=== PATIENT | female | born 1995 | race Caucasian/White ===

== ENCOUNTER 2016-10-05 16:45 | Emergency (ER) | payer BC ==
[2016-10-05 16:56] VITALS: BP 115/72; PULSE 70; RESP 16; TEMP 98.1
--- NOTE | 2016-10-05 17:22 | ED ---
General Adult HPI - General Chief complaint: Nausea/Vomiting/Diarrhea Stated complaint: Vomiting Time Seen by Provider: 10/05/16 17:13 Source: patient, RN notes reviewed Mode of arrival: ambulatory Limitations: no limitations - History of Present Illness Initial comments: 20-year-old female presents to the emergency department with a chief complaint of one episode of vomiting. Patient states this happened while she was at work today. Patient states she ate dairy about 30 minutes prior to this happening. Patient states that she suffers from IBS as well as poor digestion of dairy. Patient states after she eats. She either has diarrhea or vomits. Patient states the vomiting happened while works at a states she needed a note stating that she was safe to return to work. Patient states that she has no abdominal pain at this time. Patient states she is still having some mild nausea which is typical after she consumes dairy. Patient states that she just needs a work note. Patient states this is much like her normal symptoms she is not concerned about her symptoms she does not want to be worked up for her symptoms. Patient denies any recent fever, chills, shortness of breath, chest pain, back pain, abdominal pain, numbness or tingling, dysuria or hematuria, constipation or diarrhea, headaches or visual changes, or any other current symptoms. - Related Data Home Medications Medication Instructions Recorded Confirmed Acetaminophen Tab [Tylenol Tab] 650 mg PO Q4H PRN 03/05/16 10/05/16 Dextroamphetamine/Amphetamine 25 mg PO QAM 03/05/16 10/05/16 [Adderall Xr] Dm/Acetaminophen/Doxylamine [Vicks 1 cap PO DAILY 03/05/16 10/05/16 Nyquil Liquicaps] Ibuprofen [Motrin] 200 - 400 mg PO Q6HR PRN 03/05/16 10/05/16 Previous Rx's Medication Instructions Recorded Acetaminophen with Codeine 1 tab PO Q4H PRN #20 tab 03/05/16 [Tylenol w/codeine #3] Albuterol Nebulized [Ventolin 2.5 mg INHALATION Q4H PRN #25 nebu 03/05/16 Nebulized] Albuterol Sulfate [Proair Hfa] 1 - 2 puff INHALATION Q4H PRN #1 03/05/16 inhaler Naproxen [Naprosyn] 500 mg PO Q12HR PRN #30 tab 03/05/16 Allergies Allergy/AdvReac Type Severity Reaction Status Date / Time Sulfa (Sulfonamide Allergy Anaphylaxis Verified 10/05/16 16:56 Antibiotics) Review of Systems ROS Statement: Those systems with pertinent positive or pertinent negative responses have been documented in the HPI. ROS Other: All systems not noted in ROS Statement are negative. Past Medical History Past Medical History: GERD/Reflux Additional Past Medical History / Comment(s): CP (was in hosp 11/29 for and has persisted & dr johnson & hudson are aware) that sometimes leads to cramping; excessive & painful diarrhea; muscle cramps; IBS; hpylori, mono History of Any Multi-Drug Resistant Organisms: None Reported Past Surgical History: Cholecystectomy Past Anesthesia/Blood Transfusion Reactions: No Reported Reaction Past Psychological History: Anxiety, Depression Smoking Status: Current every day smoker Past Alcohol Use History: Rare Past Drug Use History: None Reported - Past Family History Mother Additional Family Medical History / Comment(s): ibs Father Family Medical History: Coronary Artery Disease (CAD), Hyperlipidemia, Hypertension, Myocardial Infarction ([place]) Additional Family Medical History / Comment(s): ibs, cath with stents General Exam Limitations: no limitations General appearance: alert, in no apparent distress ENT exam: Present: normal exam, mucous membranes moist Neck exam: Present: normal inspection. Absent: tenderness, meningismus, lymphadenopathy Respiratory exam: Present: normal lung sounds bilaterally. Absent: respiratory distress, wheezes, rales, rhonchi, stridor Cardiovascular Exam: Present: regular rate, normal rhythm, normal heart sounds. Absent: systolic murmur, diastolic murmur, rubs, gallop, clicks GI/Abdominal exam: Present: soft, normal bowel sounds. Absent: distended, tenderness, guarding, rebound, rigid Neurological exam: Present: alert, oriented X3 Psychiatric exam: Present: normal affect, normal mood Skin exam: Present: warm, dry, intact, normal color. Absent: rash Course Vital Signs 10/05/16 16:53 Temperature 98.1 F Pulse Rate 70 Respiratory 16 Rate Blood Pressure 115/72 O2 Sat by Pulse 97 Oximetry Medical Decision Making - Medical Decision Making 20-year-old female presents to the emergency department with a chief complaint of vomiting times one. At this time she was offered additional workup for her vomiting she states this is much like her normal vomiting just like in no state that she was here and that she can return to work. Patient has no complaints at this time. Abdomen is soft and nontender on exam. This and the patient will be discharged home. We did discuss return parameters and follow-up. She is given the plan all questions have been answered. She will be discharged. Disposition Clinical Impression: Nausea Disposition: HOME SELF-CARE Condition: Stable Instructions: Acute Nausea and Vomiting (ED) Additional Instructions: Please follow up with family doctor if symptoms have not improved over the next two days. Please return to the emergency room if your symptoms increase or worsen or for any other concerns. Referrals: Klever Shen MD [Primary Care Provider] - 1-2 days Time of Disposition: 17:22
== END 2016-10-05 17:29 | disposition home or self-care (01) ==
LOC: EC 16:45
DX: R11.2 Nausea with vomiting, unspecified (principal); F17.200 Nicotine dependence, unspecified, uncomplicated; Z79.899 Other long term (current) drug therapy; Z88.2 Allergy status to sulfonamides
CPT/HCPCS: 99283

== ENCOUNTER 2017-02-03 22:37 | Emergency (ER) | payer BC ==
[2017-02-03 22:42] VITALS: BP 119/76; PULSE 64; RESP 20; TEMP 100.3
[2017-02-03] MEDS ORDERED: PROMETHAZ-COD 6.25-10 MG/5 ML 5 ML CUP PO STA (23:03)
--- NOTE | 2017-02-03 23:12 | ED ---
URI HPI - General Chief Complaint: Upper Respiratory Infection Stated Complaint: cough Time Seen by Provider: 02/03/17 22:50 Source: patient Mode of arrival: ambulatory Limitations: no limitations - History of Present Illness Initial Comments: 21-year-old female patient percents to the emergency department today for evaluation of cough and shortness of breath. Patient states that she has had symptoms approximately one week. She states that when symptoms started she had onset of sore throat, nasal congestion, nasal drainage, and cough. She states that the cough has persisted. States that she still is having some nasal congestion. She she does occasionally cough up a small amount of green sputum. She states that she has had hot and cold flashes with this but denies any known fever. She states she does have burning in her chest when she coughs. She denies any racing heart or palpitations. She denies any recent long car rides or travel. Patient denies any recent rash, abdominal pain, nausea, vomiting, diarrhea, constipation, back pain, numbness, tingling, dizziness, weakness, hematuria, dysuria, urinary urgency, urinary frequency, headache, visual changes, or any other complaints. Denies any chance of , states her period ended yesterday. - Related Data Home Medications Medication Instructions Recorded Confirmed Dextroamphetamine/Amphetamine 25 mg PO QAM 03/05/16 02/03/17 [Adderall Xr] Ibuprofen [Motrin] 200 - 400 mg PO Q6HR PRN 03/05/16 02/03/17 Albuterol Nebulized [Ventolin 2.5 mg INHALATION RT-QID PRN 02/03/17 02/03/17 Nebulized] Albuterol Sulfate [Proair Hfa] 1 - 2 puff INHALATION RT-QID PRN 02/03/17 traMADol HCL [Ultram] 50 - 100 mg PO BID PRN 02/03/17 02/03/17 Previous Rx's Medication Instructions Recorded Azithromycin [Zithromax Z-pack] 0 mg PO DIRECTED #6 tab 02/03/17 Promethaz-Cod 6.25-10 mg/5 ml 5 ml PO Q6HR PRN #100 ml 02/03/17 [Phenergan with Codeine] Allergies Allergy/AdvReac Type Severity Reaction Status Date / Time Sulfa (Sulfonamide Allergy Anaphylaxis Verified 02/03/17 22:59 Antibiotics) Review of Systems ROS Statement: Those systems with pertinent positive or pertinent negative responses have been documented in the HPI. ROS Other: All systems not noted in ROS Statement are negative. Past Medical History Past Medical History: GERD/Reflux Additional Past Medical History / Comment(s): CP (was in hosp 11/29 for and has persisted & dr johnson & hudson are aware) that sometimes leads to cramping; excessive & painful diarrhea; muscle cramps; IBS; hpylori, mono History of Any Multi-Drug Resistant Organisms: None Reported Past Surgical History: Cholecystectomy Past Anesthesia/Blood Transfusion Reactions: No Reported Reaction Past Psychological History: Anxiety, Depression Smoking Status: Current every day smoker Past Alcohol Use History: Rare Past Drug Use History: None Reported - Past Family History Mother Additional Family Medical History / Comment(s): ibs Father Family Medical History: Coronary Artery Disease (CAD), Hyperlipidemia, Hypertension, Myocardial Infarction ([place]) Additional Family Medical History / Comment(s): ibs, cath with stents General Exam Limitations: no limitations General appearance: alert, in no apparent distress, other (Physical well- developed, well-nourished adult female patient in no acute distress. Vital signs upon presentation were temperature 100.3F, pulse 64, respirations 20, blood pressure 119/76, pulse ox 99% on room air.) Eye exam: Present: normal appearance, PERRL, EOMI. Absent: scleral icterus, conjunctival injection, periorbital swelling ENT exam: Present: normal exam, normal oropharynx, mucous membranes moist, TM's normal bilaterally Neck exam: Present: normal inspection. Absent: tenderness, meningismus, lymphadenopathy Respiratory exam: Present: normal lung sounds bilaterally. Absent: respiratory distress, wheezes, rales, rhonchi, stridor Cardiovascular Exam: Present: regular rate, normal rhythm, normal heart sounds. Absent: systolic murmur, diastolic murmur, rubs, gallop, clicks GI/Abdominal exam: Present: soft, normal bowel sounds. Absent: distended, tenderness, guarding, rebound, rigid Neurological exam: Present: alert, oriented X3, CN II-XII intact Psychiatric exam: Present: normal affect, normal mood Skin exam: Present: warm, dry, intact, normal color. Absent: rash Course Vital Signs 02/03/17 22:40 Temperature 100.3 F H Pulse Rate 64 Respiratory 20 Rate Blood Pressure 119/76 O2 Sat by Pulse 99 Oximetry Medical Decision Making - Medical Decision Making 21-year-old female patient presented to the emergency department today for evaluation of cough 1 week and nasal congestion. Physical examination was unremarkable. Lungs were clear. Two-view chest x-ray showed no acute cardiopulmonary process. Patient was mildly febrile upon arrival. Did explain to her that her symptoms are consistent with acute bronchitis. She will be given a prescription for cough medication as well as Z-Roland. She is instructed to follow-up with her primary care physician for recheck in 1-2 days. She is instructed to return here immediately for any new, worsening, or concerning symptoms. She verbalizes understanding and agrees with this plan. - Radiology Data Radiology results: report reviewed, image reviewed Two-view x-ray of the chest shows a heart and mediastinum are normal. Lungs are clear. Diaphragm is normal. Bony thorax appears normal. Impression by Dr. Webb shows normal chest with no change. Disposition Clinical Impression: Acute bronchitis, Sinusitis Disposition: HOME SELF-CARE Condition: Good Instructions: Sinusitis (ED), Acute Bronchitis (ED) Additional Instructions: Increase fluids. Take [id number]-[id number] nasal decongestants. Take Tylenol Motrin for fever control. Follow-up with her primary care physician for recheck in 1-2 days. Return here immediately for any new, worsening, or concerning symptoms. Prescriptions: Azithromycin [Zithromax Z-pack] 0 mg PO DIRECTED #6 tab Promethaz-Cod 6.25-10 mg/5 ml [Phenergan with Codeine] 5 ml PO Q6HR PRN #100 ml PRN Reason: Cough Referrals: Klever Shen MD [Primary Care Provider] - 1-2 days Time of Disposition: 23:38
--- NOTE | 2017-02-03 23:26 | XR ---
EXAMINATION TYPE: XR chest 2V DATE OF EXAM: 02/03/2017 COMPARISON: 03/05/2016 HISTORY: Cough TECHNIQUE: Frontal and lateral views of the chest are obtained. FINDINGS: Heart and mediastinum are normal. Lungs are clear. Diaphragm is normal. Bony thorax appear s normal. IMPRESSION: Normal chest. No change.
== END 2017-02-03 23:44 | disposition home or self-care (01) ==
LOC: EC 22:37
DX: J20.9 Acute bronchitis, unspecified (principal); J32.9 Chronic sinusitis, unspecified; F17.200 Nicotine dependence, unspecified, uncomplicated; Z88.2 Allergy status to sulfonamides; Z79.899 Other long term (current) drug therapy
CPT/HCPCS: 71020; 99283

== ENCOUNTER 2017-03-22 14:35 | Emergency (ER) | payer BC ==
[2017-03-22] MEDS ORDERED: ACETAMINOPHEN TAB 500 MG TAB PO STA (15:41)
[2017-03-22] MEDS ORDERED: IBUPROFEN 600 MG STARTER PACK 4 TAB BTL PO STA (15:41)
[2017-03-22] MEDS ORDERED: ONDANSETRON 4 MG/2 ML VIAL IVP STA (15:41)
[2017-03-22] MEDS ORDERED: SODIUM CHLORIDE 0.9% 1,000 ML IV ONE (15:42)
[2017-03-22] MEDS ORDERED: SODIUM CHLORIDE 0.9% 1,000 ML IV SCH (15:45)
--- NOTE | 2017-03-22 15:55 | ED ---
General Adult HPI - General Chief complaint: Nausea/Vomiting/Diarrhea Stated complaint: Recheck for flu symtoms Time Seen by Provider: 03/22/17 15:32 Source: patient, RN notes reviewed, old records reviewed Mode of arrival: ambulatory Limitations: no limitations - History of Present Illness Initial comments: Speaking of the 21-year-old female with a history of influenz exposure presents emergency department continue fever, vomiting episodes and cough. Patient had the symptoms for the past four days. Patient has been treated with Tamiflu but it's not getting any better. She's not in any Motrin Tylenol every four hours. Her cough is Productive. She denies any other abdominal pain.She reports body aches and sore throat. , - Related Data Home Medications Medication Instructions Recorded Confirmed Dextroamphetamine/Amphetamine 25 mg PO QAM 03/05/16 03/22/17 [Adderall Xr] Albuterol Sulfate [Proair Hfa] 1 - 2 puff INHALATION RT-QID PRN 02/03/17 traMADol HCL [Ultram] 50 mg PO BID PRN 02/03/17 03/22/17 Dicyclomine [Bentyl] 20 mg PO DAILY PRN 03/22/17 03/22/17 Previous Rx's Medication Instructions Recorded Amoxicillin 500 mg PO Q12HR #20 cap 03/22/17 Ibuprofen [Motrin] 800 mg PO TID #20 tab 03/22/17 Ondansetron Odt [Zofran Odt] 4 mg PO Q8HR PRN #12 tab 03/22/17 Promethazine/Dextromethorphan 5 ml PO TID #120 ml 03/22/17 [Phenergan DM Syrup] Allergies Allergy/AdvReac Type Severity Reaction Status Date / Time adhesive tape Allergy Rash/Hives Verified 03/22/17 15:58 Sulfa (Sulfonamide Allergy Anaphylaxis Verified 03/22/17 15:58 Antibiotics) Review of Systems ROS Statement: Those systems with pertinent positive or pertinent negative responses have been documented in the HPI. ROS Other: All systems not noted in ROS Statement are negative. Past Medical History Past Medical History: GERD/Reflux Additional Past Medical History / Comment(s): CP (was in hosp 11/29 for and has persisted & dr johnson & hudson are aware) that sometimes leads to cramping; excessive & painful diarrhea; muscle cramps; IBS; hpylori, mono History of Any Multi-Drug Resistant Organisms: None Reported Past Surgical History: Cholecystectomy Past Anesthesia/Blood Transfusion Reactions: No Reported Reaction Past Psychological History: Anxiety, Depression Smoking Status: Current every day smoker Past Alcohol Use History: Rare Past Drug Use History: None Reported - Past Family History Mother Additional Family Medical History / Comment(s): ibs Father Family Medical History: Coronary Artery Disease (CAD), Hyperlipidemia, Hypertension, Myocardial Infarction ([place]) Additional Family Medical History / Comment(s): ibs, cath with stents General Exam - General Exam Comments Initial Comments: This patient is a 21 year old female, discomfort and febrile. No acute distress. Limitations: no limitations General appearance: alert, in no apparent distress Head exam: Present: atraumatic, normocephalic, normal inspection Eye exam: Present: normal appearance, PERRL, EOMI. Absent: scleral icterus, conjunctival injection, periorbital swelling ENT exam: Present: normal exam, mucous membranes moist. Absent: normal oropharynx (erythematous oropharynx. ) Neck exam: Present: normal inspection, full ROM. Absent: tenderness, meningismus, lymphadenopathy Respiratory exam: Present: normal lung sounds bilaterally Cardiovascular Exam: Present: regular rate, normal rhythm, normal heart sounds. Absent: systolic murmur, diastolic murmur, rubs, gallop, clicks GI/Abdominal exam: Present: soft, normal bowel sounds. Absent: distended, tenderness, guarding, rebound, rigid Extremities exam: Present: normal inspection, full ROM, normal capillary refill. Absent: tenderness, pedal edema, joint swelling, calf tenderness Back exam: Present: normal inspection Neurological exam: Present: alert, oriented X3, CN II-XII intact Psychiatric exam: Present: normal affect, normal mood Skin exam: Present: warm Course Vital Signs 03/22/17 03/22/17 03/22/17 15:04 17:09 17:35 Temperature 101.7 F H 100.9 F H 99.8 F H Pulse Rate 108 H 91 80 Respiratory 20 20 18 Rate Blood Pressure 107/60 98/55 101/57 O2 Sat by Pulse 97 96 96 Oximetry Medical Decision Making - Medical Decision Making 21-year-old female with four days of fever, body aches, vomiting episodes and severe cough. She does have a mild that you're if I would've throat. Lungs are clear also Tat[place] but she does have a sick coughing. Patient's chest x-ray was reviewed and normal. Patient given IV fluids and nausea medication. She reports she feels better at this time. Her lab work was always viewed in within normal limits. Your analysis shows no infection. Patient does have a positive rapid strep test. Starting on amoxicillin in the emergency department. But she'll be discharged with cough syrup, anabiotic's, nausea medication, and Motrin and Tylenol. Discussed importance of following up with primary care physician. She agrees to treatment plan and will comply. - Lab Data Result diagrams: 03/22/17 16:40 03/22/17 16:40 Lab Results 03/22/17 03/22/17 03/22/17 Range/Units 16:40 16:40 16:40 WBC 7.7 (3.8-10.6) k/uL RBC 4.71 (3.80-5.40) m/uL Hgb 14.2 (11.4-16.0) gm/dL Hct 42.1 (34.0-46.0) % MCV 89.4 (80.0-100.0) fL MCH 30.1 (25.0-35.0) pg MCHC 33.7 (31.0-37.0) g/dL RDW 13.2 (11.5-15.5) % Plt Count 272 (150-450) k/uL Neutrophils % 85 % Lymphocytes % 9 % Monocytes % 3 % Eosinophils % 1 % Basophils % 0 % Neutrophils # 6.6 (1.3-7.7) k/uL Lymphocytes # 0.7 L (1.0-4.8) k/uL Monocytes # 0.3 (0-1.0) k/uL Eosinophils # 0.1 (0-0.7) k/uL Basophils # 0.0 (0-0.2) k/uL Sodium 140 (137-145) mmol/L Potassium 4.1 (3.5-5.1) mmol/L Chloride 105 (98-107) mmol/L Carbon Dioxide 23 (22-30) mmol/L Anion Gap 12 mmol/L BUN 9 (7-17) mg/dL Creatinine 0.70 (0.52-1.04) mg/dL Est GFR (MDRD) Af Amer >60 (>60 ml/min/1.73 sqM) Est GFR (MDRD) Non-Af >60 (>60 ml/min/1.73 sqM) Glucose 103 H (74-99) mg/dL Calcium 9.4 (8.4-10.2) mg/dL Total Bilirubin 0.4 (0.2-1.3) mg/dL AST 40 H (14-36) U/L ALT 56 H (9-52) U/L Alkaline Phosphatase 92 (38-126) U/L Total Protein 7.6 (6.3-8.2) g/dL Albumin 4.2 (3.5-5.0) g/dL Urine Color Urine Appearance (Clear) Urine pH (5.0-8.0) Ur Specific [place] (1.001-1.035) Urine Protein (Negative) Urine Glucose (UA) (Negative) Urine Ketones (Negative) Urine Blood (Negative) Urine Nitrite (Negative) Urine Bilirubin (Negative) Urine Urobilinogen (<2.0) mg/dL Ur Leukocyte Esterase (Negative) Urine WBC (0-5) /hpf Ur Squamous Epith Cells (0-4) /hpf Urine Bacteria (None) /hpf Urine Mucus (None) /hpf Urine HCG, Qual Not Detected (Not Detectd) Influenza Type A RNA (Not Detectd) Influenza Type B (PCR) (Not Detectd) Group A Strep Rapid (Negative) 03/22/17 03/22/17 03/22/17 Range/Units 16:40 16:40 16:40 WBC (3.8-10.6) k/uL RBC (3.80-5.40) m/uL Hgb (11.4-16.0) gm/dL Hct (34.0-46.0) % MCV (80.0-100.0) fL MCH (25.0-35.0) pg MCHC (31.0-37.0) g/dL RDW (11.5-15.5) % Plt Count (150-450) k/uL Neutrophils % % Lymphocytes % % Monocytes % % Eosinophils % % Basophils % % Neutrophils # (1.3-7.7) k/uL Lymphocytes # (1.0-4.8) k/uL Monocytes # (0-1.0) k/uL Eosinophils # (0-0.7) k/uL Basophils # (0-0.2) k/uL Sodium (137-145) mmol/L Potassium (3.5-5.1) mmol/L Chloride (98-107) mmol/L Carbon Dioxide (22-30) mmol/L Anion Gap mmol/L BUN (7-17) mg/dL Creatinine (0.52-1.04) mg/dL Est GFR (MDRD) Af Amer (>60 ml/min/1.73 sqM) Est GFR (MDRD) Non-Af (>60 ml/min/1.73 sqM) Glucose (74-99) mg/dL Calcium (8.4-10.2) mg/dL Total Bilirubin (0.2-1.3) mg/dL AST (14-36) U/L ALT (9-52) U/L Alkaline Phosphatase (38-126) U/L Total Protein (6.3-8.2) g/dL Albumin (3.5-5.0) g/dL Urine Color Yellow Urine Appearance Cloudy H (Clear) Urine pH 6.0 (5.0-8.0) Ur Specific [place] 1.018 (1.001-1.035) Urine Protein Negative (Negative) Urine Glucose (UA) Negative (Negative) Urine Ketones Negative (Negative) Urine Blood Negative (Negative) Urine Nitrite Negative (Negative) Urine Bilirubin Negative (Negative) Urine Urobilinogen 3.0 (<2.0) mg/dL Ur Leukocyte Esterase Moderate H (Negative) Urine WBC 3 (0-5) /hpf Ur Squamous Epith Cells 14 H (0-4) /hpf Urine Bacteria Rare H (None) /hpf Urine Mucus Rare H (None) /hpf Urine HCG, Qual (Not Detectd) Influenza Type A RNA Not Detected (Not Detectd) Influenza Type B (PCR) Not Detected (Not Detectd) Group A Strep Rapid Positive A (Negative) - Radiology Data Radiology results: report reviewed CXR is reviewed and negative. Disposition Clinical Impression: Strep pharyngitis Disposition: HOME SELF-CARE Condition: Good Instructions: Strep Throat (ED) Additional Instructions: Patient is to alternate Motrin and Tylenol every 4 hours for fever. Take the antibiotic as prescribed. Return to the emergency department if any alarming signs or symptoms occur. Prescriptions: Amoxicillin 500 mg PO Q12HR #20 cap Ibuprofen [Motrin] 800 mg PO TID #20 tab Ondansetron Odt [Zofran Odt] 4 mg PO Q8HR PRN #12 tab PRN Reason: Nausea Promethazine/Dextromethorphan [Phenergan DM Syrup] 5 ml PO TID #120 ml Referrals: Klever Shen MD [Primary Care Provider] - 1-2 days Time of Disposition: 17:25
[2017-03-22 16:53] LABS: Basophils % (A) 0 %; Eosinophils # (A) 0.1 k/uL (0-0.7); Eosinophils % (A) 1 %; HCT 42.1 % (34.0-46.0); HGB 14.2 gm/dL (11.4-16.0); Lymphocytes # (A) 0.7 k/uL (1.0-4.8); Lymphocytes % (A) 9 %; MCH 30.1 pg (25.0-35.0); MCHC 33.7 g/dL (31.0-37.0); MCV 89.4 fL (80.0-100.0); Mean Platelet Volume 7.7; Monocytes # (A) 0.3 k/uL (0-1.0); Monocytes % (A) 3 %; Neutrophils # (A) 6.6 k/uL (1.3-7.7); Neutrophils % (A) 85 %; Platelet Count 272 k/uL (150-450); RBC 4.71 m/uL (3.80-5.40); RDW 13.2 % (11.5-15.5); WBC 7.7 k/uL (3.8-10.6)
[2017-03-22 17:01] LABS: ALT 56 U/L (9-52); AST 40 U/L (14-36); Albumin 4.2 g/dL (3.5-5.0); Alkaline Phosphatase 92 U/L (38-126); Anion Gap 12 mmol/L; Blood Urea Nitrogen 9 mg/dL (7-17); Calcium 9.4 mg/dL (8.4-10.2); Carbon Dioxide 23 mmol/L (22-30); Chloride 105 mmol/L (98-107); Glucose 103 mg/dL (74-99); Potassium 4.1 mmol/L (3.5-5.1); Sodium 140 mmol/L (137-145); Total Bilirubin 0.4 mg/dL (0.2-1.3); Total Protein 7.6 g/dL (6.3-8.2)
[2017-03-22 17:04] LABS: Appearance,Urine Cloudy (Clear); Bacteria,Urine Rare /hpf; Bilirubin,Urine Negative (Negative); Blood,Urine Negative (Negative); Color,Urine Yellow; Glucose,Urine (UA) Negative (Negative); Ketones,Urine Negative (Negative); Leukocyte Esterase,Urine Moderate (Negative); Mucus,Urine Rare /hpf; Nitrite,Urine Negative (Negative); Protein,Urine Negative (Negative); Specific Gravity,Urine 1.018 (1.001-1.035); Squamous Epithelial Cell,Urine 14 /hpf (0-4); WBC,Urine 3 /hpf (0-5)
--- NOTE | 2017-03-22 17:22 | XR ---
EXAMINATION TYPE: XR chest 2V DATE OF EXAM: 03/22/2017 COMPARISON: Chest x-ray February 03, 2017 HISTORY: Chest pain. TECHNIQUE: Frontal and lateral views of the chest are obtained. FINDINGS: There is no focal air space opacity, pleural effusion, or pneumothorax seen. The cardiac silhouette size is within normal limits. The osseous structures are intact. Cholecystectomy clips a re redemonstrated. IMPRESSION: No acute cardiopulmonary process. No significant change from prior.
[2017-03-22] MEDS ORDERED: AMOXICILLIN 500MG STARTER PACK 3 CAP BTL PO STA (17:23)
[2017-03-22 17:37] VITALS: BP 101/57; PULSE 80; RESP 18; TEMP 99.8
== END 2017-03-22 17:48 | disposition home or self-care (01) ==
LOC: EC 14:35
DX: J02.0 Streptococcal pharyngitis (principal); F17.200 Nicotine dependence, unspecified, uncomplicated; Z79.899 Other long term (current) drug therapy; Z91.048 Other nonmedicinal substance allergy status; Z88.2 Allergy status to sulfonamides
CPT/HCPCS: 99284; 96374; 96361; 36415; 80053; 85025; 81001; 81025; 87430; 87502; 71046; J2405

== ENCOUNTER 2018-03-15 23:48 | Emergency (ER) | payer BC ==
[2018-03-16 00:16] VITALS: RESP 18
[2018-03-16] MEDS ORDERED: predniSONE 20 MG TAB PO STA (00:47)
--- NOTE | 2018-03-16 00:49 | ED ---
Allergic Reaction HPI - General Chief complaint: Allergic Reaction Stated complaint: Allergic Reaction Time Seen by Provider: 03/16/18 00:25 Source: patient Mode of arrival: ambulatory Limitations: no limitations - History of Present Illness Initial Comments: Xiomara is a previously healthy 22-year-old male who presents to the emergency department this morning for evaluation of urticaria and hives. Patient reports she has a known history of ALLERGIES to cats, she did state a friend's house last night in the [facility] and does have cats. Patient reports throughout the day today she has had hives on her bilateral upper and lower extremities as well as her back. Patient reports that she took 25 mg of Benadryl prior to going to work and then she had a workup. 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 When she got home she took a cold shower took 50 mg of Benadryl and then came to the ER for evaluation. Patient denies any shortness of breath, wheezing, swelling of her lips or tongue , nausea or vomiting. - Related Data Home Medications Medication Instructions Recorded Confirmed Dextroamphetamine/Amphetamine 25 mg PO QAM 03/05/16 03/22/17 [Adderall Xr] Albuterol Sulfate [Proair Hfa] 1 - 2 puff INHALATION RT-QID PRN 02/03/17 traMADol HCL [Ultram] 50 mg PO BID PRN 02/03/17 03/22/17 Dicyclomine [Bentyl] 20 mg PO DAILY PRN 03/22/17 03/22/17 Previous Rx's Medication Instructions Recorded Amoxicillin 500 mg PO Q12HR #20 cap 03/22/17 Ibuprofen [Motrin] 800 mg PO TID #20 tab 03/22/17 Ondansetron Odt [Zofran Odt] 4 mg PO Q8HR PRN #12 tab 03/22/17 Promethazine/Dextromethorphan 5 ml PO TID #120 ml 03/22/17 [Phenergan DM Syrup] Cetirizine HCl [Zyrtec] 10 mg PO DAILY #30 tab 03/16/18 diphenhydrAMINE [Benadryl] 50 mg PO HS PRN #30 capsule 03/16/18 predniSONE [Deltasone] 40 mg PO DAILY 5 Days #10 tablet 12/31/18 Allergies Allergy/AdvReac Type Severity Reaction Status Date / Time adhesive tape Allergy Rash/Hives Verified 03/16/18 00:16 cat dander Allergy Rash/Hives Verified 03/16/18 00:16 Sulfa (Sulfonamide Allergy Anaphylaxis Verified 03/16/18 00:16 Antibiotics) Review of Systems ROS Statement: Those systems with pertinent positive or pertinent negative responses have been documented in the HPI. ROS Other: All systems not noted in ROS Statement are negative. Past Medical History Past Medical History: GERD/Reflux Additional Past Medical History / Comment(s): CP (was in hosp 11/29 for and has persisted & dr johnson & hudson are aware) that sometimes leads to cramping; excessive & painful diarrhea; muscle cramps; IBS; hpylori, mono History of Any Multi-Drug Resistant Organisms: None Reported Past Surgical History: Cholecystectomy Past Anesthesia/Blood Transfusion Reactions: No Reported Reaction Past Psychological History: Anxiety, Depression Smoking Status: Current every day smoker Past Alcohol Use History: Rare Past Drug Use History: None Reported - Past Family History Mother Additional Family Medical History / Comment(s): ibs Father Family Medical History: Coronary Artery Disease (CAD), Hyperlipidemia, Hypertension, Myocardial Infarction ([place]) Additional Family Medical History / Comment(s): ibs, cath with stents General Exam - General Exam Comments Initial Comments: Physical Exam GENERAL: Patient is well-developed and well-nourished. Patient is nontoxic and well- hydrated and is in no distress. HENT: Normocephalic, Atraumatic. EYES: PERRL, EOMI PULMONARY: Unlabored respirations. No audible rales rhonchi or wheezing was noted. CARDIOVASCULAR: There is a regular rate and rhythm without any murmurs gallops or rubs. ABDOMEN: Soft and nontender with normal bowel sounds. SKIN: Urticaria with excoriations on bilateral upper extremities and lower extremities : Deferred NEUROLOGIC: Patient is alert and oriented x3. Moving all extremities spontaneously MUSCULOSKELETAL: Normal extremities with adequate strength and full range of motion. No lower extremity swelling or edema. No calf tenderness. PSYCHIATRIC: Normal psychiatric evaluation. Limitations: no limitations Limitations: no limitations Course Vital Signs 03/16/18 03/16/18 00:12 01:49 Temperature 98.3 F 97.3 F L Pulse Rate 72 92 Respiratory 18 18 Rate Blood Pressure 128/87 133/78 O2 Sat by Pulse 98 98 Oximetry Medical Decision Making - Medical Decision Making The patient was seen and evaluated history was obtained from the patient History and physical exam are consistent with an ALLERGIC reaction Patient with no signs of a systemic reaction, no airway involvement or GI involvement, no hypotension Patient is taken appropriate dose of Benadryl prior to arrival Patient will be given steroids, will be discharged on a short dose of steroids, return parameters were discussed all questions pertaining care were answered patient was advised to avoid any contact with cats. Patient discharged home in stable condition. Disposition Clinical Impression: Allergic reaction Disposition: HOME SELF-CARE Instructions: Urticaria (ED) Prescriptions: Cetirizine HCl [Zyrtec] 10 mg PO DAILY #30 tab diphenhydrAMINE [Benadryl] 50 mg PO HS PRN #30 capsule PRN Reason: Allergic Reaction predniSONE [Deltasone] 40 mg PO DAILY 5 Days #10 tablet Is patient prescribed a controlled substance at d/c from ED?: No Referrals: Sai Wilder MD [Primary Care Provider] - 1-2 days Time of Disposition: 00:49
[2018-03-16 01:50] VITALS: BP 133/78; PULSE 92; TEMP 97.3
== END 2018-03-16 01:30 | disposition home or self-care (01) ==
LOC: EC 23:48
DX: T78.40XA Allergy, unspecified, initial encounter (principal); F32.9 Major depressive disorder, single episode, unspecified; F41.9 Anxiety disorder, unspecified; F17.200 Nicotine dependence, unspecified, uncomplicated; Z79.899 Other long term (current) drug therapy; Z88.2 Allergy status to sulfonamides; Z91.048 Other nonmedicinal substance allergy status; Z91.09 Other allergy status, other than to drugs and biological substances
CPT/HCPCS: 99283; J7512

== ENCOUNTER 2018-10-04 20:50 | Emergency (ER) | payer BC ==
[2018-10-04 22:31] VITALS: RESP 18
[2018-10-04] MEDS ORDERED: DEXAMETHASONE SOD PHOSPHATE 10 MG/ML 1 ML VIAL IM STA (22:36)
--- NOTE | 2018-10-04 23:05 | XR ---
EXAM: XR Chest, 2 Views CLINICAL HISTORY: Cough/pain TECHNIQUE: Frontal and lateral views of the chest. COMPARISON: No relevant prior studies available. FINDINGS: Lungs: Unremarkable. No consolidation. Pleural space: Unremarkable. No pneumothorax. Heart: Unremarkable. No cardiomegaly. Mediastinum: Unremarkable. Bones/joints: Unremarkable. IMPRESSION: Normal chest x-rays.
[2018-10-04 23:26] VITALS: BP 103/68; PULSE 64; TEMP 98
--- NOTE | 2018-10-04 23:33 | ED ---
General Adult HPI - General Source: patient Mode of arrival: ambulatory Limitations: no limitations <Dank Page - Last Filed: 10/05/18 01:07> <Yazmin Clarke - Last Filed: 10/05/18 02:18> - General Chief complaint: Upper Respiratory Infection Stated complaint: Cough Time Seen by Provider: 10/04/18 22:08 - History of Present Illness Initial comments: Patient is a 22-year-old female presenting to emergency Department with a cough. Patient reports an ongoing cough for approximately 3 weeks without resolution. Patient reports the cough is productive with "greenish yellow" sputum production. Patient reports intermittent clear bilateral rhinorrhea, sore throat but states that it is most likely due to the cough. Patient reports 2 episodes of posttussive emesis today. Patient reports seasonal ALLERGIES with denies asthma. Patient is a smoker but only smokes occasionally. Patient denies fever, headache, nausea, vomiting, diarrhea, chest pain, chest, shortness of breath. (Dank Page) - Related Data Home Medications Medication Instructions Recorded Confirmed Dextroamphetamine/Amphetamine 25 mg PO QAM 03/05/16 03/22/17 [Adderall Xr] Albuterol Sulfate [Proair Hfa] 1 - 2 puff INHALATION RT-QID PRN 02/03/17 03/22/17 traMADol HCL [Ultram] 50 mg PO BID PRN 02/03/17 03/22/17 Dicyclomine [Bentyl] 20 mg PO DAILY PRN 03/22/17 03/22/17 Previous Rx's Medication Instructions Recorded Amoxicillin 500 mg PO Q12HR #20 cap 03/22/17 Ibuprofen [Motrin] 800 mg PO TID #20 tab 03/22/17 Ondansetron Odt [Zofran Odt] 4 mg PO Q8HR PRN #12 tab 03/22/17 Promethazine/Dextromethorphan 5 ml PO TID #120 ml 03/22/17 [Phenergan DM Syrup] Cetirizine HCl [Zyrtec] 10 mg PO DAILY #30 tab 03/16/18 diphenhydrAMINE [Benadryl] 50 mg PO HS PRN #30 capsule 03/16/18 predniSONE [Deltasone] 40 mg PO DAILY 5 Days #10 tablet 03/16/18 Albuterol Inhaler [Ventolin Hfa 1 - 2 puff INHALATION RT-Q6H PRN 10/04/18 Inhaler] #1 inhaler Azithromycin [Zithromax Z-pack] 0 mg PO DIRECTED #1 pack 10/04/18 Allergies Allergy/AdvReac Type Severity Reaction Status Date / Time adhesive tape Allergy Rash/Hives Verified 03/16/18 00:16 cat dander Allergy Rash/Hives Verified 03/16/18 00:16 Sulfa (Sulfonamide Allergy Anaphylaxis Verified 03/16/18 00:16 Antibiotics) Review of Systems ROS Other: All systems not noted in ROS Statement are negative. <Dank Page - Last Filed: 10/05/18 01:07> ROS Other: All systems not noted in ROS Statement are negative. <Yazmin Clarke - Last Filed: 10/05/18 02:18> ROS Statement: Those systems with pertinent positive or pertinent negative responses have been documented in the HPI. Past Medical History Past Medical History: GERD/Reflux Additional Past Medical History / Comment(s): CP (was in hosp 11/29 for and has persisted & dr johnson & hudson are aware) that sometimes leads to cramping; excessive & painful diarrhea; muscle cramps; IBS; hpylori, mono History of Any Multi-Drug Resistant Organisms: None Reported Past Surgical History: Cholecystectomy Past Anesthesia/Blood Transfusion Reactions: No Reported Reaction Past Psychological History: Anxiety, Bipolar, Depression Smoking Status: Current every day smoker Past Alcohol Use History: Occasional Past Drug Use History: None Reported - Past Family History Mother Additional Family Medical History / Comment(s): ibs Father Family Medical History: Coronary Artery Disease (CAD), Hyperlipidemia, Hypertension, Myocardial Infarction ([place]) Additional Family Medical History / Comment(s): ibs, cath with stents <Dank Page - Last Filed: 10/05/18 01:07> General Exam Limitations: no limitations <Dank Page - Last Filed: 10/05/18 01:07> - General Exam Comments Initial Comments: General: Well-developed well-nourished distress HEENT: Normocephalic/atraumatic, PERLL, pharynx erythema, swallowing well, EAC no erythema, no exudates, TM clear, no cervical lymph nodes Neck: Supple, nontender, trachea midline Chest/Lungs: Normal respirations, no signs of respiratory distress clear to auscultation bilaterally no wheezes, rales, rhonchi Cardiac: Regular rate and rhythm, normal S1-S2, no murmurs rubs or gallops Abdomen/GI: Soft nontender, bowel sounds equal or quadrant x4, no guarding, no rebound no CVA tenderness Musculoskeletal: Nontender, full range of motion, no edema, strength equal bilaterally Skin: Warmth, no rashes or lesions, no cyanosis or diaphoresis Neurologic: AAO x 3, CN 2-12 intact, Psychiatric: Mood and affect normal, judgment normal (Dank Page) Course Vital Signs 10/04/18 10/04/18 10/04/18 21:34 22:27 22:31 Temperature 98.8 F Pulse Rate 74 71 Respiratory 19 20 18 Rate Blood Pressure 105/73 107/66 O2 Sat by Pulse 97 97 Oximetry 10/04/18 23:25 Temperature 98 F Pulse Rate 64 Respiratory 18 Rate Blood Pressure 103/68 O2 Sat by Pulse 97 Oximetry Medical Decision Making <Dank Page - Last Filed: 10/05/18 01:07> <Yazmin Clarke - Last Filed: 10/05/18 02:18> - Medical Decision Making Patient is a 22-year-old female presents emergency Department for a cough. Based on history and physical examination suspect the patient to have a viral bronchitis. Chest x-ray is negative. Physical examination is remarkable. Patient is afebrile. Considering the fact that the cough has been ongoing for approximately 3 months going to treat the patient with antibiotics. Patient was also given Decadron in the EC to minimize the respiratory symptoms. Patient will also be discharged with albuterol inhaler. Patient advised to follow-up with primary care. Strict return parameters were thoroughly discussed with patient was understanding and agreeable. Case discussed with physician. (Dank Page) I was available for consultation in the emergency department. The history and ph ysical exam were done by the midlevel provider. I was consulted for this patient's care. I reviewed the case with the midlevel provider and based on their presentation of the patient, I agree with the assessment, medical decision making and plan of care as documented. Chart was dictated using [employer] dictation software. Attempts were made to correct any dictation errors however some typographical errors may persist. (Yazmin Clarke) Disposition Is patient prescribed a controlled substance at d/c from ED?: No Time of Disposition: 23:33 <Dank Page - Last Filed: 10/05/18 01:07> <Yazmin Clarke - Last Filed: 10/05/18 02:18> Clinical Impression: Cough Disposition: HOME SELF-CARE Condition: Stable Instructions (If sedation given, give patient instructions): Upper Respiratory Infection (ED) Additional Instructions: Please take prescribed medication as directed. Please follow with primary care. Please return to emergency department if symptoms worsen. Prescriptions: Albuterol Inhaler [Ventolin Hfa Inhaler] 1 - 2 puff INHALATION RT-Q6H PRN #1 inhaler PRN Reason: astma Azithromycin [Zithromax Z-pack] 0 mg PO DIRECTED #1 pack Referrals: Sai Wilder MD [Primary Care Provider] - 1-2 days
== END 2018-10-04 23:39 | disposition home or self-care (01) ==
LOC: EC 20:50
DX: R05 Cough (principal); F17.200 Nicotine dependence, unspecified, uncomplicated; Z79.899 Other long term (current) drug therapy; Z88.2 Allergy status to sulfonamides; Z91.048 Other nonmedicinal substance allergy status; Z91.09 Other allergy status, other than to drugs and biological substances
CPT/HCPCS: 71046; 99283; 96372; J1100

== ENCOUNTER 2019-01-23 15:32 | Emergency (ER) | payer BC ==
[2019-01-23 15:39] VITALS: RESP 18
--- NOTE | 2019-01-23 16:01 | ED ---
Psych HPI - General Chief Complaint: Psychiatric Symptoms Stated Complaint: Mental Health Time Seen by Provider: 01/23/19 15:43 Source: patient, RN notes reviewed Mode of arrival: ambulatory Limitations: no limitations - History of Present Illness Initial Comments: 23-year-old female presents emergency Department chief complaint depression, suicidal ideation. Patient does have a history of depression and bipolar disorder. She is on no current medications. Patient states he is been Zoloft. Patient states that she is at the point where over the last month her depression is worsened and she feels that she may harm herself she has no exact plan does admit to marijuana use no alcohol abuse. Drinking. Patient has no physical complaints. - Related Data Home Medications Medication Instructions Recorded Confirmed Ibuprofen [Motrin Ib] 200 - 400 mg PO Q6H PRN 01/23/19 01/23/19 Allergies Allergy/AdvReac Type Severity Reaction Status Date / Time adhesive tape Allergy Rash/Hives Verified 01/23/19 18:57 cat dander Allergy Rash/Hives Verified 01/23/19 18:57 Sulfa (Sulfonamide Allergy Anaphylaxis Verified 01/23/19 18:57 Antibiotics) Review of Systems ROS Statement: Those systems with pertinent positive or pertinent negative responses have been documented in the HPI. ROS Other: All systems not noted in ROS Statement are negative. Past Medical History Past Medical History: GERD/Reflux Additional Past Medical History / Comment(s): CP (was in hosp 11/29 for and has persisted & dr johnson & hudson are aware) that sometimes leads to cramping; excessive & painful diarrhea; muscle cramps; IBS; hpylori, mono History of Any Multi-Drug Resistant Organisms: None Reported Past Surgical History: Cholecystectomy Past Anesthesia/Blood Transfusion Reactions: No Reported Reaction Past Psychological History: Anxiety, Bipolar, Depression Smoking Status: Current every day smoker Past Alcohol Use History: Occasional Past Drug Use History: Marijuana - Past Family History Mother Additional Family Medical History / Comment(s): ibs Father Family Medical History: Coronary Artery Disease (CAD), Hyperlipidemia, Hypertension, Myocardial Infarction ([place]) Additional Family Medical History / Comment(s): ibs, cath with stents General Exam Limitations: no limitations General appearance: alert, in no apparent distress Head exam: Present: atraumatic, normocephalic, normal inspection Eye exam: Present: normal appearance, PERRL, EOMI. Absent: scleral icterus, conjunctival injection, periorbital swelling ENT exam: Present: normal exam, normal oropharynx, mucous membranes moist Neck exam: Present: normal inspection, full ROM. Absent: tenderness, meningismus, lymphadenopathy Respiratory exam: Present: normal lung sounds bilaterally. Absent: respiratory distress, wheezes, rales, rhonchi, stridor Cardiovascular Exam: Present: regular rate, normal rhythm, normal heart sounds. Absent: systolic murmur, diastolic murmur, rubs, gallop, clicks GI/Abdominal exam: Present: soft, normal bowel sounds. Absent: distended, tenderness, guarding, rebound, rigid Neurological exam: Present: alert, oriented X3, CN II-XII intact Psychiatric exam: Present: depressed Course Vital Signs 01/23/19 01/23/19 15:33 23:41 Temperature 98.6 F 98 F Pulse Rate 79 66 Respiratory 18 18 Rate Blood Pressure 158/91 106/61 O2 Sat by Pulse 97 98 Oximetry Medical Decision Making - Medical Decision Making Patient medically cleared and was transferred to psychiatric facility - Lab Data Result diagrams: 01/23/19 16:11 01/23/19 16:11 Lab Results 01/23/19 01/23/19 01/23/19 Range/Units 16:11 16:11 16:55 WBC 7.5 (3.8-10.6) k/uL RBC 4.65 (3.80-5.40) m/uL Hgb 14.7 (11.4-16.0) gm/dL Hct 43.7 (34.0-46.0) % MCV 94.0 (80.0-100.0) fL MCH 31.6 (25.0-35.0) pg MCHC 33.6 (31.0-37.0) g/dL RDW 12.1 (11.5-15.5) % Plt Count 288 (150-450) k/uL Neutrophils % 58 % Lymphocytes % 31 % Monocytes % 6 % Eosinophils % 2 % Basophils % 1 % Neutrophils # 4.4 (1.3-7.7) k/uL Lymphocytes # 2.3 (1.0-4.8) k/uL Monocytes # 0.5 (0-1.0) k/uL Eosinophils # 0.1 (0-0.7) k/uL Basophils # 0.0 (0-0.2) k/uL Sodium 141 (137-145) mmol/L Potassium 3.9 (3.5-5.1) mmol/L Chloride 107 (98-107) mmol/L Carbon Dioxide 24 (22-30) mmol/L Anion Gap 10 mmol/L BUN 8 (7-17) mg/dL Creatinine 0.69 (0.52-1.04) mg/dL Est GFR (CKD-EPI)AfAm >90 (>60 ml/min/1.73 sqM) Est GFR (CKD-EPI)NonAf >90 (>60 ml/min/1.73 sqM) Glucose 92 (74-99) mg/dL Calcium 9.9 (8.4-10.2) mg/dL Total Bilirubin 0.5 (0.2-1.3) mg/dL AST 25 (14-36) U/L ALT 21 (9-52) U/L Alkaline Phosphatase 72 (38-126) U/L Total Protein 7.8 (6.3-8.2) g/dL Albumin 4.5 (3.5-5.0) g/dL Urine HCG, Qual (Not Detectd) Urine Opiates Screen Not Detected (NotDetected) Ur Oxycodone Screen Not Detected (NotDetected) Urine Methadone Screen Not Detected (NotDetected) Ur Propoxyphene Screen Not Detected (NotDetected) Ur Barbiturates Screen Detected H (NotDetected) U Tricyclic Antidepress Not Detected (NotDetected) Ur Phencyclidine Scrn Not Detected (NotDetected) Ur Amphetamines Screen Not Detected (NotDetected) U Methamphetamines Scrn Not Detected (NotDetected) U Benzodiazepines Scrn Not Detected (NotDetected) Urine Cocaine Screen Not Detected (NotDetected) U Marijuana (THC) Screen Detected H (NotDetected) 01/23/19 Range/Units 16:55 WBC (3.8-10.6) k/uL RBC (3.80-5.40) m/uL Hgb (11.4-16.0) gm/dL Hct (34.0-46.0) % MCV (80.0-100.0) fL MCH (25.0-35.0) pg MCHC (31.0-37.0) g/dL RDW (11.5-15.5) % Plt Count (150-450) k/uL Neutrophils % % Lymphocytes % % Monocytes % % Eosinophils % % Basophils % % Neutrophils # (1.3-7.7) k/uL Lymphocytes # (1.0-4.8) k/uL Monocytes # (0-1.0) k/uL Eosinophils # (0-0.7) k/uL Basophils # (0-0.2) k/uL Sodium (137-145) mmol/L Potassium (3.5-5.1) mmol/L Chloride (98-107) mmol/L Carbon Dioxide (22-30) mmol/L Anion Gap mmol/L BUN (7-17) mg/dL Creatinine (0.52-1.04) mg/dL Est GFR (CKD-EPI)AfAm (>60 ml/min/1.73 sqM) Est GFR (CKD-EPI)NonAf (>60 ml/min/1.73 sqM) Glucose (74-99) mg/dL Calcium (8.4-10.2) mg/dL Total Bilirubin (0.2-1.3) mg/dL AST (14-36) U/L ALT (9-52) U/L Alkaline Phosphatase (38-126) U/L Total Protein (6.3-8.2) g/dL Albumin (3.5-5.0) g/dL Urine HCG, Qual Not Detected (Not Detectd) Urine Opiates Screen (NotDetected) Ur Oxycodone Screen (NotDetected) Urine Methadone Screen (NotDetected) Ur Propoxyphene Screen (NotDetected) Ur Barbiturates Screen (NotDetected) U Tricyclic Antidepress (NotDetected) Ur Phencyclidine Scrn (NotDetected) Ur Amphetamines Screen (NotDetected) U Methamphetamines Scrn (NotDetected) U Benzodiazepines Scrn (NotDetected) Urine Cocaine Screen (NotDetected) U Marijuana (THC) Screen (NotDetected) Disposition Clinical Impression: Depression, Suicidal ideation, Bipolar disorder Disposition: TRANSFER TO PSYCH HOSP/UNIT Referrals: Sai Wilder MD [Primary Care Provider] - 1-2 days
[2019-01-23 17:26] LABS: Amphetamine Screen,Urine Not Detected (NotDetected); Barbiturate Screen,Urine Detected (NotDetected); Benzodiazepines Screen,Urine Not Detected (NotDetected); Cocaine Screen,Urine Not Detected (NotDetected); Methadone Screen, Urine Not Detected (NotDetected); Opiate Screen,Urine Not Detected (NotDetected); Oxycodone Screen, Urine Not Detected (NotDetected); Phencyclidine Screen,Urine Not Detected (NotDetected); Tricyclic Antidepressant,Urine Not Detected (NotDetected); Urn Cannabinoid Scrn Detected (NotDetected)
[2019-01-23 19:52] LABS: Basophils % (A) 1 %; Eosinophils # (A) 0.1 k/uL (0-0.7); Eosinophils % (A) 2 %; HCT 43.7 % (34.0-46.0); HGB 14.7 gm/dL (11.4-16.0); Lymphocytes # (A) 2.3 k/uL (1.0-4.8); Lymphocytes % (A) 31 %; MCH 31.6 pg (25.0-35.0); MCHC 33.6 g/dL (31.0-37.0); Mean Platelet Volume 7.3; Monocytes # (A) 0.5 k/uL (0-1.0); Monocytes % (A) 6 %; Neutrophils # (A) 4.4 k/uL (1.3-7.7); Neutrophils % (A) 58 %; Platelet Count 288 k/uL (150-450); RBC 4.65 m/uL (3.80-5.40); RDW 12.1 % (11.5-15.5); WBC 7.5 k/uL (3.8-10.6)
[2019-01-23 20:02] LABS: ALT 21 U/L (9-52); AST 25 U/L (14-36); African American GFR (CKD) >90 (>60 ml/min/1.73 sqM); Albumin 4.5 g/dL (3.5-5.0); Alkaline Phosphatase 72 U/L (38-126); Anion Gap 10 mmol/L; Blood Urea Nitrogen 8 mg/dL (7-17); Calcium 9.9 mg/dL (8.4-10.2); Carbon Dioxide 24 mmol/L (22-30); Chloride 107 mmol/L (98-107); Glucose 92 mg/dL (74-99); Potassium 3.9 mmol/L (3.5-5.1); Sodium 141 mmol/L (137-145); Total Bilirubin 0.5 mg/dL (0.2-1.3); Total Protein 7.8 g/dL (6.3-8.2)
[2019-01-23 23:43] VITALS: BP 106/61; PULSE 66; TEMP 98
== END 2019-01-23 23:59 ==
LOC: EC 15:32
DX: F31.9 Bipolar disorder, unspecified (principal); R45.851 Suicidal ideations; F17.200 Nicotine dependence, unspecified, uncomplicated; Z88.2 Allergy status to sulfonamides; Z91.048 Other nonmedicinal substance allergy status
CPT/HCPCS: 36415; 80053; 80306; 81025; 82075; 85025; 99285

== ENCOUNTER 2021-03-30 13:28 | Emergency (ER) | payer BC, OTHER ==
[2021-03-30 13:44] VITALS: BP 121/80; PULSE 86; RESP 18; TEMP 98
[2021-03-30] MEDS ORDERED: ACETAMINOPHEN TAB 325 MG TAB PO STA (13:49)
[2021-03-30] MEDS ORDERED: SODIUM CHLORIDE 0.9% 1,000 ML IV STA (13:49)
[2021-03-30] MEDS ORDERED: IBUPROFEN 600 MG TAB PO STA (14:18)
[2021-03-30] MEDS ORDERED: ONDANSETRON 4 MG/2 ML VIAL IVP STA (14:22)
[2021-03-30 14:53] LABS: ALT 30 U/L (4-34); AST 24 U/L (14-36); African American GFR (CKD) >90 (>60 ml/min/1.73 sqM); Albumin 4.5 g/dL (3.5-5.0); Alkaline Phosphatase 82 U/L (38-126); Amylase 89 U/L (30-110); Anion Gap 9 mmol/L; Blood Urea Nitrogen 15 mg/dL (7-17); Calcium 9.6 mg/dL (8.4-10.2); Carbon Dioxide 26 mmol/L (22-30); Chloride 104 mmol/L (98-107); Glucose 92 mg/dL (74-99); Lipase 110 U/L (23-300); Non-African American GFR(CKD) 87 (>60 ml/min/1.73 sqM); Potassium 3.9 mmol/L (3.5-5.1); Sodium 139 mmol/L (137-145); Total Bilirubin 0.6 mg/dL (0.2-1.3); Total Protein 8.2 g/dL (6.3-8.2)
[2021-03-30 15:12] LABS: Basophils # (A) 0.1 k/uL (0-0.2); Basophils % (A) 1 %; Eosinophils # (A) 0.1 k/uL (0-0.7); Eosinophils % (A) 1 %; HCT 48.3 % (34.0-46.0); HGB 16.2 gm/dL (11.4-16.0); Lymphocytes # (A) 2.8 k/uL (1.0-4.8); Lymphocytes % (A) 30 %; MCH 32.2 pg (25.0-35.0); MCHC 33.6 g/dL (31.0-37.0); MCV 95.9 fL (80.0-100.0); Mean Platelet Volume 8.2; Monocytes # (A) 0.5 k/uL (0-1.0); Monocytes % (A) 6 %; Neutrophils # (A) 5.7 k/uL (1.3-7.7); Neutrophils % (A) 61 %; Platelet Count 294 k/uL (150-450); RBC 5.04 m/uL (3.80-5.40); RDW 12.7 % (11.5-15.5); WBC 9.3 k/uL (3.8-10.6)
[2021-03-30 15:56] LABS: Appearance,Urine Cloudy (Clear); Bilirubin,Urine Negative (Negative); Blood,Urine Negative (Negative); Color,Urine Yellow; Glucose,Urine (UA) Negative (Negative); Ketones,Urine Negative (Negative); Leukocyte Esterase,Urine Small (Negative); Mucus,Urine Moderate /hpf; Nitrite,Urine Negative (Negative); PH, Urine 5.5 (5.0-8.0); Protein,Urine Trace (Negative); RBC,Urine 2 /hpf (0-5); Specific Gravity,Urine 1.029 (1.001-1.035); Squamous Epithelial Cell,Urine 4 /hpf (0-4); Urobilinogen,Urine <2.0 mg/dL (<2.0); WBC,Urine 4 /hpf (0-5)
--- NOTE | 2021-03-30 16:19 | XR ---
EXAMINATION TYPE: XR chest 2V DATE OF EXAM: 03/30/2021 COMPARISON: 10/04/2018 HISTORY: 25-year-old female with fever and abdominal pain TECHNIQUE: PA and lateral views FINDINGS: Heart normal size. Aorta and pulmonary vasculature within normal limits. Some strandy atelectasis in the lower lungs. No jaycob consolidation or pleural effusion. IMPRESSION: Some strandy bibasilar atelectasis. No jaycob infiltrate at this time.
[2021-03-30] MEDS ORDERED: ONDANSETRON 4 MG ODT STARTER PACK 2 TAB BTL PO STA (16:24)
--- NOTE | 2021-03-30 16:24 | ED ---
General Adult HPI - General Chief complaint: Fever Stated complaint: Covid+ Time Seen by Provider: 03/30/21 13:49 Source: patient, RN notes reviewed Mode of arrival: wheelchair - History of Present Illness Initial comments: Patient is a 25-year-old female that presents to the emergency department complaining of Covid symptoms for 10-11 days. Patient notes she is having difficulty keeping food down at this point. She reports more nausea than anything. She notes she has a fairly well. She was otherwise well-appearing. She denied any chest pain shortness of breath headache diarrhea constipation fever fatigue chills. - Related Data Home Medications Medication Instructions Recorded Confirmed Ibuprofen [Motrin Ib] 200 - 400 mg PO Q6H PRN 01/23/19 01/23/19 Allergies Allergy/AdvReac Type Severity Reaction Status Date / Time adhesive tape Allergy Rash/Hives Verified 03/30/21 13:44 cat dander Allergy Rash/Hives Verified 03/30/21 13:44 Sulfa (Sulfonamide Allergy Anaphylaxis Verified 03/30/21 13:44 Antibiotics) Review of Systems ROS Statement: Those systems with pertinent positive or pertinent negative responses have been documented in the HPI. ROS Other: All systems not noted in ROS Statement are negative. Past Medical History Past Medical History: GERD/Reflux Additional Past Medical History / Comment(s): CP (was in hosp 11/29 for and has persisted & dr johnson & hudson are aware) that sometimes leads to cramping; excessive & painful diarrhea; muscle cramps; IBS; hpylori, mono History of Any Multi-Drug Resistant Organisms: None Reported Past Surgical History: Cholecystectomy Past Anesthesia/Blood Transfusion Reactions: No Reported Reaction Past Psychological History: Anxiety, Bipolar, Depression Smoking Status: Former smoker Past Alcohol Use History: Occasional Past Drug Use History: Marijuana - Past Family History Mother Additional Family Medical History / Comment(s): ibs Father Family Medical History: Coronary Artery Disease (CAD), Hyperlipidemia, Hypertension, Myocardial Infarction ([place]) Additional Family Medical History / Comment(s): ibs, cath with stents General Exam General appearance: alert, in no apparent distress Head exam: Present: atraumatic, normocephalic, normal inspection Eye exam: Present: normal appearance, PERRL, EOMI. Absent: scleral icterus, conjunctival injection, periorbital swelling ENT exam: Present: normal exam, mucous membranes moist Neck exam: Present: normal inspection Respiratory exam: Present: normal lung sounds bilaterally. Absent: respiratory distress, wheezes, rales, rhonchi, stridor Cardiovascular Exam: Present: regular rate, normal rhythm, normal heart sounds. Absent: systolic murmur, diastolic murmur, rubs, gallop, clicks Extremities exam: Present: normal inspection, full ROM, normal capillary refill. Absent: tenderness, pedal edema, joint swelling, calf tenderness Neurological exam: Present: alert, oriented X3 Psychiatric exam: Present: normal affect, normal mood Skin exam: Present: warm, dry, intact, normal color. Absent: rash Course Vital Signs 03/30/21 13:40 Temperature 98.0 F Pulse Rate 86 Respiratory 18 Rate Blood Pressure 121/80 O2 Sat by Pulse 99 Oximetry Medical Decision Making - Medical Decision Making [age] female with Covid symptoms the past 10-11 days. Labs, chest x-ray, 1 L normal saline, 4 mg Zofran, 6 were 50 mg of Tylenol, 600 mg Motrin ordered. Labs unremarkable within normal limits. Chest x-ray shows no acute process. Patient be sent home with Zofran. Case discussed with Dr. Carnes - Lab Data Result diagrams: 03/30/21 14:29 03/30/21 14:29 Lab Results 03/30/21 03/30/21 03/30/21 Range/Units 14:29 14:29 15:33 WBC 9.3 (3.8-10.6) k/uL RBC 5.04 (3.80-5.40) m/uL Hgb 16.2 H (11.4-16.0) gm/dL Hct 48.3 H (34.0-46.0) % MCV 95.9 (80.0-100.0) fL MCH 32.2 (25.0-35.0) pg MCHC 33.6 (31.0-37.0) g/dL RDW 12.7 (11.5-15.5) % Plt Count 294 (150-450) k/uL MPV 8.2 Neutrophils % 61 % Lymphocytes % 30 % Monocytes % 6 % Eosinophils % 1 % Basophils % 1 % Neutrophils # 5.7 (1.3-7.7) k/uL Lymphocytes # 2.8 (1.0-4.8) k/uL Monocytes # 0.5 (0-1.0) k/uL Eosinophils # 0.1 (0-0.7) k/uL Basophils # 0.1 (0-0.2) k/uL Sodium 139 (137-145) mmol/L Potassium 3.9 (3.5-5.1) mmol/L Chloride 104 (98-107) mmol/L Carbon Dioxide 26 (22-30) mmol/L Anion Gap 9 mmol/L BUN 15 (7-17) mg/dL Creatinine 0.91 (0.52-1.04) mg/dL Est GFR (CKD-EPI)AfAm >90 (>60 ml/min/1.73 sqM) Est GFR (CKD-EPI)NonAf 87 (>60 ml/min/1.73 sqM) Glucose 92 (74-99) mg/dL Calcium 9.6 (8.4-10.2) mg/dL Total Bilirubin 0.6 (0.2-1.3) mg/dL AST 24 (14-36) U/L ALT 30 (4-34) U/L Alkaline Phosphatase 82 (38-126) U/L Total Protein 8.2 (6.3-8.2) g/dL Albumin 4.5 (3.5-5.0) g/dL Amylase 89 (30-110) U/L Lipase 110 (23-300) U/L Urine Color Yellow Urine Appearance Cloudy H (Clear) Urine pH 5.5 (5.0-8.0) Ur Specific [place] 1.029 (1.001-1.035) Urine Protein Trace H (Negative) Urine Glucose (UA) Negative (Negative) Urine Ketones Negative (Negative) Urine Blood Negative (Negative) Urine Nitrite Negative (Negative) Urine Bilirubin Negative (Negative) Urine Urobilinogen <2.0 (<2.0) mg/dL Ur Leukocyte Esterase Small H (Negative) Urine RBC 2 (0-5) /hpf Urine WBC 4 (0-5) /hpf Ur Squamous Epith Cells 4 (0-4) /hpf Urine Mucus Moderate H (None) /hpf Urine HCG, Qual (Not Detectd) 03/30/21 Range/Units 15:33 WBC (3.8-10.6) k/uL RBC (3.80-5.40) m/uL Hgb (11.4-16.0) gm/dL Hct (34.0-46.0) % MCV (80.0-100.0) fL MCH (25.0-35.0) pg MCHC (31.0-37.0) g/dL RDW (11.5-15.5) % Plt Count (150-450) k/uL MPV Neutrophils % % Lymphocytes % % Monocytes % % Eosinophils % % Basophils % % Neutrophils # (1.3-7.7) k/uL Lymphocytes # (1.0-4.8) k/uL Monocytes # (0-1.0) k/uL Eosinophils # (0-0.7) k/uL Basophils # (0-0.2) k/uL Sodium (137-145) mmol/L Potassium (3.5-5.1) mmol/L Chloride (98-107) mmol/L Carbon Dioxide (22-30) mmol/L Anion Gap mmol/L BUN (7-17) mg/dL Creatinine (0.52-1.04) mg/dL Est GFR (CKD-EPI)AfAm (>60 ml/min/1.73 sqM) Est GFR (CKD-EPI)NonAf (>60 ml/min/1.73 sqM) Glucose (74-99) mg/dL Calcium (8.4-10.2) mg/dL Total Bilirubin (0.2-1.3) mg/dL AST (14-36) U/L ALT (4-34) U/L Alkaline Phosphatase (38-126) U/L Total Protein (6.3-8.2) g/dL Albumin (3.5-5.0) g/dL Amylase (30-110) U/L Lipase (23-300) U/L Urine Color Urine Appearance (Clear) Urine pH (5.0-8.0) Ur Specific [place] (1.001-1.035) Urine Protein (Negative) Urine Glucose (UA) (Negative) Urine Ketones (Negative) Urine Blood (Negative) Urine Nitrite (Negative) Urine Bilirubin (Negative) Urine Urobilinogen (<2.0) mg/dL Ur Leukocyte Esterase (Negative) Urine RBC (0-5) /hpf Urine WBC (0-5) /hpf Ur Squamous Epith Cells (0-4) /hpf Urine Mucus (None) /hpf Urine HCG, Qual Not Detected (Not Detectd) - Radiology Data Radiology results: report reviewed, image reviewed Chest x-ray: Some stringy bibasal atelectasis. No jaycob infiltrate at this time. Disposition Clinical Impression: COVID, Nausea Disposition: HOME SELF-CARE Condition: Stable Instructions (If sedation given, give patient instructions): Fever in Adults (ED) Additional Instructions: Please return to the Emergency Department if symptoms worsen or any other concerns. Follow-up primary care in 1-2 days. Take Zofran as prescribed. Is patient prescribed a controlled substance at d/c from ED?: No Referrals: Sai Wilder MD [Primary Care Provider] - 1-2 days Time of Disposition: 16:24
== END 2021-03-30 17:18 | disposition home or self-care (01) ==
LOC: EC 13:28
DX: U07.1 COVID-19 (principal); Z87.891 Personal history of nicotine dependence; Z91.09 Other allergy status, other than to drugs and biological substances; Z91.048 Other nonmedicinal substance allergy status; Z88.2 Allergy status to sulfonamides
CPT/HCPCS: 36415; 80053; 82150; 83690; 85025; 81001; 81025; 71046; 99283; 96374; 96361; J2405; S0119

== ENCOUNTER 2021-10-17 12:23 | Emergency (ER) | payer OTHER ==
[2021-10-17 14:23] VITALS: BP 113/82; PULSE 80; RESP 16
[2021-10-17 15:09] LABS: Amorphous Sediment,Urine Rare /hpf; Appearance,Urine Cloudy (Clear); Bilirubin,Urine Negative (Negative); Blood,Urine Negative (Negative); Color,Urine Yellow; Glucose,Urine (UA) Negative (Negative); Hyaline Casts,Urine 1 /lpf (0-2); Ketones,Urine Negative (Negative); Leukocyte Esterase,Urine Trace (Negative); Mucus,Urine Few /hpf; Nitrite,Urine Negative (Negative); Protein,Urine 1+ (Negative); RBC,Urine 3 /hpf (0-5); Squamous Epithelial Cell,Urine 3 /hpf (0-4); Urobilinogen,Urine <2.0 mg/dL (<2.0); WBC,Urine 3 /hpf (0-5)
[2021-10-17] MEDS ORDERED: ONDANSETRON 4 MG/2 ML VIAL IVP STA (15:46)
[2021-10-17] MEDS ORDERED: SODIUM CHLORIDE 0.9% 1,000 ML IV STA (15:46)
[2021-10-17] MEDS ORDERED: KETOROLAC 15 MG/ML 1 ML VIAL IVP STA ×2 (15:46→19:32)
[2021-10-17 16:23] LABS: Basophils % (A) 1 %; Eosinophils # (A) 0.1 k/uL (0-0.7); Eosinophils % (A) 2 %; HCT 44.7 % (34.0-46.0); HGB 15.1 gm/dL (11.4-16.0); Lymphocytes # (A) 1.2 k/uL (1.0-4.8); Lymphocytes % (A) 30 %; MCH 31.6 pg (25.0-35.0); MCHC 33.8 g/dL (31.0-37.0); MCV 93.5 fL (80.0-100.0); Mean Platelet Volume 8.3; Monocytes # (A) 0.2 k/uL (0-1.0); Monocytes % (A) 6 %; Neutrophils # (A) 2.3 k/uL (1.3-7.7); Neutrophils % (A) 59 %; Platelet Count 161 k/uL (150-450); RBC 4.78 m/uL (3.80-5.40); RDW 12.3 % (11.5-15.5); WBC 3.9 k/uL (3.8-10.6)
[2021-10-17 16:32] LABS: Albumin 4.7 g/dL (3.5-5.0); Calcium 9.4 mg/dL (8.4-10.2); Potassium 3.5 mmol/L (3.5-5.1); Total Bilirubin 0.5 mg/dL (0.2-1.3)
--- NOTE | 2021-10-17 17:21 | CT ---
EXAMINATION TYPE: CT abdomen pelvis w con DATE OF EXAM: 10/17/2021 COMPARISON: 3 views HISTORY: abdominal pain, pelvic pain CT DLP: 1445 mGycm Automated exposure control for dose reduction was used. CONTRAST: Performed with IV Contrast, patient injected with 100 mL of Isovue 300. The lung bases are clear. There is no pleural effusion. Heart size is normal. No pericardial effusion . Liver spleen stomach pancreas appear intact. The bile ducts are not dilated. There are clips from cho lecystectomy. There is no adrenal mass. Kidneys show normal size and contour. There is normal contrast opacificatio n of the kidneys. No hydronephrosis. Delayed images show normal renal excretion. There is no retroper itoneal adenopathy. Ureters are not dilated. The bladder distends smoothly. No inguinal hernia. There is small amount of free fluid in the pelvis. Uterus is somewhat retroverted. No pelvic mass. Ap pendix is lateral and appears normal. The lumbar vertebra appear intact. No compression fracture. The bony pelvis is intact. The hip joints appear intact. Sacroiliac joints are normal. There is no mesenteric edema. No ascites or free air. No bowel obstruction. IMPRESSION: There is small amount of low-density free fluid in the pelvis. Otherwise negative CT scan abdomen and pelvis. Normal appendix.
[2021-10-17] MEDS ORDERED: MORPHINE SULFATE 2 MG/ML SYRINGE IVP STA (17:28)
[2021-10-17 17:44] VITALS: TEMP 97.8
--- NOTE | 2021-10-17 18:15 | US ---
EXAMINATION TYPE: US pelvic transvaginal DATE OF EXAM: 10/17/2021 COMPARISON: CT 10/17/21 CLINICAL HISTORY: Pevic pain. Pelvic pain x 3 days. TECHNIQUE: . Transvaginal sonographic images of the pelvis were acquired. Date of LMP: 09/21/21 EXAM MEASUREMENTS: Uterus: 8.7 x 5.2 x 3.2 cm Endometrial Stripe: 0.99 cm Right Ovary: 3.5 x 2.8 x 2.0 cm Left Ovary: 4.0 x 2.8 x 2.0 cm 1. Uterus: Anteverted Nabothian cysts visualized in cervix 2. Endometrium: wnl 3. Right Ovary: wnl 4. Left Ovary: wnl 5. Bilateral Adnexa: Small amount of free fluid seen adjacent to right ovary 6. Posterior cul-de-sac: Free fluid seen IMPRESSION: Normal uterus and endometrium. No adnexal mass. There is mild free fluid in the cul-de-sac. MTDD
[2021-10-17] MEDS ORDERED: HYDROmorphone 0.5 MG/0.5 ML SYRINGE IVP STA ×2 (18:28→19:32)
--- NOTE | 2021-10-17 19:17 | ED ---
Abdominal Pain HPI - General Chief Complaint: Abdominal Pain Stated Complaint: Pelvic Pain/NVD Time Seen by Provider: 10/17/21 15:41 Source: patient, family, RN notes reviewed Mode of arrival: ambulatory Limitations: no limitations - History of Present Illness Initial Comments: This is a 25-year-old female who presents to the emergency department for nausea and pelvic/abdominal pain. States that for the last 3 days, she has had progressive pelvic pain and cramping. She is scheduled to have her period in 4 days, however she has never had cramping beforehand. Denies any vaginal bleeding. She does have known endometriosis and IBS, however she states that this pain feels different. Today she has started to experience nausea and vomiting due to the pain. Denies any fevers, chills, sore throat, cough, dyspnea, chest pain, palpitations, diarrhea, back pain, or headaches. MD Complaint: abdominal pain Onset/Timin -: days(s) Location: suprapubic Quality: cramping Consistency: constant Associated Symptoms: nausea, vomiting - Related Data Patient : No Home Medications Medication Instructions Recorded Confirmed Ibuprofen [Motrin Ib] 200 - 400 mg PO Q6H PRN 01/23/19 01/23/19 Previous Rx's Medication Instructions Recorded Baclofen 5 mg PO TID PRN #20 tablet 10/17/21 HYDROcodone/APAP 5-325MG [[place] 1 tab PO Q6HR PRN 3 Days #12 tab 10/17/21 5-325] Ketorolac [Toradol] 10 mg PO Q6HR PRN #12 tab 10/17/21 Ondansetron Odt [Zofran Odt] 4 mg PO Q8HR PRN #20 tab 10/17/21 Allergies Allergy/AdvReac Type Severity Reaction Status Date / Time adhesive tape Allergy Rash/Hives Verified 10/17/21 14:23 cat dander Allergy Rash/Hives Verified 10/17/21 14:23 Sulfa (Sulfonamide Allergy Anaphylaxis Verified 10/17/21 14:23 Antibiotics) Review of Systems ROS Statement: Those systems with pertinent positive or pertinent negative responses have been documented in the HPI. ROS Other: All systems not noted in ROS Statement are negative. Past Medical History Past Medical History: GERD/Reflux Additional Past Medical History / Comment(s): CP (was in hosp 9/15 for and has persisted & dr johnson & hudson are aware) that sometimes leads to cramping; excessive & painful diarrhea; muscle cramps; IBS; hpylori, mono History of Any Multi-Drug Resistant Organisms: None Reported Past Surgical History: Cholecystectomy Past Anesthesia/Blood Transfusion Reactions: No Reported Reaction Past Psychological History: Anxiety, Bipolar, Depression Smoking Status: Current every day smoker, Vaper Past Alcohol Use History: Occasional Past Drug Use History: Marijuana - Past Family History Mother Additional Family Medical History / Comment(s): ibs Father Family Medical History: Coronary Artery Disease (CAD), Hyperlipidemia, Hyperten mary, Myocardial Infarction ([place]) Additional Family Medical History / Comment(s): ibs, cath with stents General Exam Limitations: no limitations General appearance: alert, in distress Head exam: Present: atraumatic, normocephalic, normal inspection Respiratory exam: Present: normal lung sounds bilaterally. Absent: respiratory distress, wheezes, rales, rhonchi, stridor Cardiovascular Exam: Present: regular rate, normal rhythm, normal heart sounds. Absent: systolic murmur, diastolic murmur, rubs, gallop, clicks GI/Abdominal exam: Present: soft, tenderness (RLQ, LLQ, and suprapubic), normal bowel sounds. Absent: distended, guarding, rebound, rigid Neurological exam: Present: alert, oriented X3, CN II-XII intact Psychiatric exam: Present: normal affect, normal mood Skin exam: Present: warm, dry, intact, normal color. Absent: rash Course Vital Signs 10/17/21 10/17/21 14:21 17:44 Temperature 98.3 F 97.8 F Pulse Rate 80 Respiratory 16 Rate Blood Pressure 113/82 O2 Sat by Pulse 99 Oximetry Medical Decision Making - Medical Decision Making This is a 25-year-old female who presents to the emergency department for nausea and pelvic pain. Lab work and urinalysis were nonactionable. Given the extent of her pain, CT of the abdomen and pelvis was obtained. This revealed a small amount of free fluid in the pelvis. Discussed that this is most likely physiologic, however she continues to have pain despite the Toradol and Dilauded, so a pelvic US was obtained. This revealed mild free fluid in the cul- de-sac, consistent with the CT scan findings. Discussed that the fluid did not have the appearance of blood or purulence to suggest infection or active bleeding. In this case, the fluid is most likely physiological and may be related to ovulation or the endometriosis. Her symptoms were able to be managed with the addition of Norflex, which calmed down the cramping symptoms. Patient stable for discharge home. Rx for Toradol, Baclofen, and Zofran provided. I did provide a very short course of [place] given the severity of her symptoms and associated endometriosis. She is instructed to take this very sparingly when symptoms are the most severe. Starter packs provided as well, as the patient's pharmacy was closed at the time of discharge. If symptoms become a recurrent problem, she may need to consider starting control for regulation of her menstrual cycle. Return precautions reviewed in depth, the patient is instructed to return to the emergency department with any new, worsening, or concerning symptoms. Patient verbalized understanding. This case was discussed in detail with the attending ED physician. Presentation, findings, and treatment plan discussed in detail as well. - Lab Data Result diagrams: 10/17/21 16:15 10/17/21 16:15 Lab Results 10/17/21 10/17/21 10/17/21 Range/Units 14:24 14:24 16:15 WBC 3.9 (3.8-10.6) k/uL RBC 4.78 (3.80-5.40) m/uL Hgb 15.1 (11.4-16.0) gm/dL Hct 44.7 (34.0-46.0) % MCV 93.5 (80.0-100.0) fL MCH 31.6 (25.0-35.0) pg MCHC 33.8 (31.0-37.0) g/dL RDW 12.3 (11.5-15.5) % Plt Count 161 (150-450) k/uL MPV 8.3 Neutrophils % 59 % Lymphocytes % 30 % Monocytes % 6 % Eosinophils % 2 % Basophils % 1 % Neutrophils # 2.3 (1.3-7.7) k/uL Lymphocytes # 1.2 (1.0-4.8) k/uL Monocytes # 0.2 (0-1.0) k/uL Eosinophils # 0.1 (0-0.7) k/uL Basophils # 0.0 (0-0.2) k/uL Sodium (137-145) mmol/L Potassium (3.5-5.1) mmol/L Chloride (98-107) mmol/L Carbon Dioxide (22-30) mmol/L Anion Gap mmol/L BUN (7-17) mg/dL Creatinine (0.52-1.04) mg/dL Est GFR (CKD-EPI)AfAm (>60 ml/min/1.73 sqM) Est GFR (CKD-EPI)NonAf (>60 ml/min/1.73 sqM) Glucose (74-99) mg/dL Calcium (8.4-10.2) mg/dL Total Bilirubin (0.2-1.3) mg/dL AST (14-36) U/L ALT (4-34) U/L Alkaline Phosphatase (38-126) U/L Total Protein (6.3-8.2) g/dL Albumin (3.5-5.0) g/dL Amylase (30-110) U/L Lipase (23-300) U/L Urine Color Yellow Urine Appearance Cloudy H (Clear) Urine pH 6.0 (5.0-8.0) Ur Specific [place] 1.020 (1.001-1.035) Urine Protein 1+ H (Negative) Urine Glucose (UA) Negative (Negative) Urine Ketones Negative (Negative) Urine Blood Negative (Negative) Urine Nitrite Negative (Negative) Urine Bilirubin Negative (Negative) Urine Urobilinogen <2.0 (<2.0) mg/dL Ur Leukocyte Esterase Trace H (Negative) Urine RBC 3 (0-5) /hpf Urine WBC 3 (0-5) /hpf Ur Squamous Epith Cells 3 (0-4) /hpf Amorphous Sediment Rare H (None) /hpf Hyaline Casts 1 (0-2) /lpf Urine Mucus Few H (None) /hpf Urine HCG, Qual Not Detected (Not Detectd) 10/17/21 Range/Units 16:15 WBC (3.8-10.6) k/uL RBC (3.80-5.40) m/uL Hgb (11.4-16.0) gm/dL Hct (34.0-46.0) % MCV (80.0-100.0) fL MCH (25.0-35.0) pg MCHC (31.0-37.0) g/dL RDW (11.5-15.5) % Plt Count (150-450) k/uL MPV Neutrophils % % Lymphocytes % % Monocytes % % Eosinophils % % Basophils % % Neutrophils # (1.3-7.7) k/uL Lymphocytes # (1.0-4.8) k/uL Monocytes # (0-1.0) k/uL Eosinophils # (0-0.7) k/uL Basophils # (0-0.2) k/uL Sodium 139 (137-145) mmol/L Potassium 3.5 (3.5-5.1) mmol/L Chloride 103 (98-107) mmol/L Carbon Dioxide 23 (22-30) mmol/L Anion Gap 13 mmol/L BUN 8 (7-17) mg/dL Creatinine 1.00 (0.52-1.04) mg/dL Est GFR (CKD-EPI)AfAm 90 (>60 ml/min/1.73 sqM) Est GFR (CKD-EPI)NonAf 78 (>60 ml/min/1.73 sqM) Glucose 88 (74-99) mg/dL Calcium 9.4 (8.4-10.2) mg/dL Total Bilirubin 0.5 (0.2-1.3) mg/dL AST 42 H (14-36) U/L ALT 34 (4-34) U/L Alkaline Phosphatase 96 (38-126) U/L Total Protein 8.0 (6.3-8.2) g/dL Albumin 4.7 (3.5-5.0) g/dL Amylase 51 (30-110) U/L Lipase 51 (23-300) U/L Urine Color Urine Appearance (Clear) Urine pH (5.0-8.0) Ur Specific [place] (1.001-1.035) Urine Protein (Negative) Urine Glucose (UA) (Negative) Urine Ketones (Negative) Urine Blood (Negative) Urine Nitrite (Negative) Urine Bilirubin (Negative) Urine Urobilinogen (<2.0) mg/dL Ur Leukocyte Esterase (Negative) Urine RBC (0-5) /hpf Urine WBC (0-5) /hpf Ur Squamous Epith Cells (0-4) /hpf Amorphous Sediment (None) /hpf Hyaline Casts (0-2) /lpf Urine Mucus (None) /hpf Urine HCG, Qual (Not Detectd) - Radiology Data Radiology results: report reviewed, image reviewed Disposition Clinical Impression: Pelvic pain Disposition: HOME SELF-CARE Instructions (If sedation given, give patient instructions): Pelvic Pain in Women (ED) Additional Instructions: Return to the emergency department with any new, worsening, or concerning symptoms. Take the Toradol as needed up to every 6 hours, however do not take this with any other anti-inflammatories such as ibuprofen. You may take Tylenol with this. Take the [place] sparingly when the pain is the most severe, and be aware that it may be sedating. Take the first dose of baclofen at night, as this can also be sedating. Zofran can be taken up to every 8 hours as needed for nausea and vomiting. Prescriptions: Baclofen 5 mg PO TID PRN #20 tablet PRN Reason: Pain HYDROcodone/APAP 5-325MG [[place] 5-325] 1 tab PO Q6HR PRN 3 Days #12 tab PRN Reason: Pain Ketorolac [Toradol] 10 mg PO Q6HR PRN #12 tab PRN Reason: Pain Ondansetron Odt [Zofran Odt] 4 mg PO Q8HR PRN #20 tab PRN Reason: Nausea And Vomiting Is patient prescribed a controlled substance at d/c from ED?: Yes When asked, does pt state using other controlled substances?: No If prescribed controlled substance>3 days was MAPS reviewed?: Prescribed <3 Days Referrals: Sai Wilder MD [Primary Care Provider] - 1-2 days
[2021-10-17] MEDS ORDERED: ORPHENADRINE 30 MG/ML 2 ML VIAL IVP STA (19:32)
[2021-10-17] MEDS ORDERED: ONDANSETRON 4 MG ODT STARTER PACK 2 TAB BTL PO STA (20:13)
[2021-10-17] MEDS ORDERED: CYCLOBENZAPRINE 10MG STARTER 3 TAB BTL PO STA (20:13)
[2021-10-17] MEDS ORDERED: IBUPROFEN 600 MG STARTER PACK 4 TAB BTL PO STA (20:13)
[2021-10-17] MEDS ORDERED: ACET/COD 300 MG/30 MG STARTER PACK 6 TAB BTL PO STA (20:13)
== END 2021-10-17 21:00 | disposition home or self-care (01) ==
LOC: EC 12:23
DX: R10.9 Unspecified abdominal pain (principal); F17.209 Nicotine dependence, unspecified, with unspecified nicotine-induced disorders; Z88.2 Allergy status to sulfonamides; Z91.048 Other nonmedicinal substance allergy status; Z88.8 Allergy status to other drugs, medicaments and biological substances
CPT/HCPCS: 99284; 96374; 96375; 96361; 96376; 36415; 80053; 82150; 83690; 85025; 81001; 81025; 76856; 74177; J2360; J2405; J1885; S0119; J1170; Q9967; 76830